=== PATIENT | male | born 1995 | race African-American/Black ===

== ENCOUNTER 2019-07-04 10:48 | Emergency (ER) | payer MEDICAID ==
[~2019-07-04] VITALS: Ht 180.3 cm; Wt 70.0 kg
[2019-07-04] MEDS ORDERED: HYDROCODONE/ACETAMINOPHEN 5/325MG TABLET PO ONE (13:45)
[2019-07-04] MEDS ORDERED: ONDANSETRON 4MG ODT PO ONE (13:45)
[2019-07-04 15:12] VITALS: BP 104/65
== END 2019-07-04 15:13 | disposition home or self-care (01) ==
LOC: ER 10:48
DX: S62.610A Displaced fracture of proximal phalanx of right index finger, initial encounter for closed fracture (principal); Y04.0XXA Assault by unarmed brawl or fight, initial encounter; Y93.89 Activity, other specified; Y92.9 Unspecified place or not applicable
CPT/HCPCS: 29130; 73130; 73140; 99283; Q0162

== ENCOUNTER 2022-02-27 00:37 | Emergency (ER) | payer MEDICAID ==
[~2022-02-27] VITALS: Ht 177.8 cm; Wt 69.0 kg
[2022-02-27 01:19] VITALS: BP 135/84
== END 2022-02-27 03:05 | disposition left against medical advice (07) ==
LOC: ER 00:37
DX: Z53.21 Procedure and treatment not carried out due to patient leaving prior to being seen by health care provider (principal)

== ENCOUNTER 2025-02-20 21:05 | Emergency (ER) | payer MEDICAID ==
[~2025-02-20] VITALS: Ht 179.1 cm; Wt 72.3 kg
[2025-02-20 21:13] VITALS: O2SAT 99
[2025-02-20 21:17] VITALS: BP 115/66; PULSE 76; RESP 16; TEMP 37.1; O2SAT 100
[2025-02-21] MEDS ORDERED: BO1 TP (01:33)
[2025-02-21] MEDS: LIDOCAINE HCL 1% 20ML VIAL INFIL ONE (01:58)
== END 2025-02-21 01:59 | disposition home or self-care (01) ==
LOC: ER 21:05
DX: S61.012A Laceration without foreign body of left thumb without damage to nail, initial encounter (principal); W45.8XXA Other foreign body or object entering through skin, initial encounter; Y93.89 Activity, other specified; Y92.89 Other specified places as the place of occurrence of the external cause; Y99.8 Other external cause status
CPT/HCPCS: 12001; 99282; J2003; Z7610

== ENCOUNTER 2025-03-06 09:42 | Emergency (ER) | payer MEDICAID ==
[~2025-03-06] VITALS: Ht 177.8 cm; Wt 71.0 kg
[~2025-03-06 09:42] MED LIST: BO1 TP
[2025-03-06 09:43] VITALS: O2SAT 97
[2025-03-06 09:52] VITALS: BP 118/71; PULSE 60; RESP 18; TEMP 36.9; O2SAT 100
== END 2025-03-06 10:09 | disposition home or self-care (01) ==
LOC: ER 09:42
DX: S61.012D Laceration without foreign body of left thumb without damage to nail, subsequent encounter (principal); X58.XXXD Exposure to other specified factors, subsequent encounter
CPT/HCPCS: 99281